=== PATIENT | male | born 1980 | race Caucasian/White ===

== ENCOUNTER 2021-02-09 09:16 | Emergency (ER) | payer OTHER ==
[2021-02-09] MEDS ORDERED: KETOROLAC 15 MG/ML 1 ML VIAL IM STA (09:58)
--- NOTE | 2021-02-09 10:01 | ED ---
General Adult HPI - General Chief complaint: Chest Pain Stated complaint: possible pulled chest muscle Time Seen by Provider: 02/09/21 09:16 Source: patient, RN notes reviewed, old records reviewed Mode of arrival: ambulatory Limitations: no limitations - History of Present Illness Initial comments: This is a 41-year-old male who presents emergency Department stating that he hurt his upper chest on the right when he was at work. 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 Patient states touching the area is very tender and overhead movement of his right arm also increases the pain. Patient states he sits at rest there is no pain. Patient denies any difficulty breathing shortness of breath per patient denies any fever chills or cough. Patient denies any diaphoretic episodes. - Related Data Previous Rx's Medication Instructions Recorded Ketorolac [Toradol] 10 mg PO Q6HR #15 tab 02/09/21 Allergies Allergy/AdvReac Type Severity Reaction Status Date / Time propoxyphene napsylate AdvReac Nausea & Verified 02/09/21 10:55 [From Conrad] Vomiting & Diarrhea Review of Systems ROS Statement: Those systems with pertinent positive or pertinent negative responses have been documented in the HPI. ROS Other: All systems not noted in ROS Statement are negative. Past Medical History Past Medical History: No Reported History History of Any Multi-Drug Resistant Organisms: None Reported Past Surgical History: Hernia Repair Past Psychological History: No Psychological Hx Reported Smoking Status: Current every day smoker Past Alcohol Use History: None Reported Past Drug Use History: None Reported General Exam - General Exam Comments Initial Comments: GENERAL: Patient is well-developed and well-nourished. Patient is nontoxic and well- hydrated and is in no acute distress. ENT: Neck is soft and supple. No significant lymphadenopathy is noted. Oropharynx is clear. Moist mucous membranes. Neck has full range of motion without eliciting any pain. EYES: The sclera were anicteric and conjunctiva were pink and moist. Extraocular movements were intact and pupils were equal round and reactive to light. Eyelids were unremarkable. PULMONARY: Unlabored respirations. Good breath sounds bilaterally. No audible rales rhonchi or wheezing was noted. CARDIOVASCULAR: There is a regular rate and rhythm without any murmurs gallops or rubs. ABDOMEN: Soft and nontender with normal bowel sounds. SKIN: Skin is clear with no lesions or rashes and otherwise unremarkable. NEUROLOGIC: Patient is alert and oriented x3. Cranial nerves II through XII are grossly intact. Motor and sensory are also intact. Normal speech, volume and content. Symmetrical smile. MUSCULOSKELETAL: Normal extremities with adequate strength and full range of motion. Having him move his right arm above his head elicits lateral pectoralis pain. Also palpating the pectoralis muscle causes significant pain PSYCHIATRIC: Normal psychiatric evaluation. Limitations: no limitations Course Vital Signs 02/09/21 09:17 Temperature 99.1 F Pulse Rate 74 Respiratory 18 Rate Blood Pressure 132/83 O2 Sat by Pulse 97 Oximetry Medical Decision Making - Medical Decision Making EKG shows normal sinus rhythm at 70 bpm SC interval 128 QRS is 70 QT interval 372 QTC is 411. Patient's EKG shows no ST segment elevation or depression. Chest x-ray shows no acute abnormality. Patient was given Toradol emergency department and it helped with his pain. Disposition Clinical Impression: Musculoskeletal chest pain Disposition: HOME SELF-CARE Condition: Good Instructions (If sedation given, give patient instructions): Chest Pain (ED) Prescriptions: Ketorolac [Toradol] 10 mg PO Q6HR #15 tab Is patient prescribed a controlled substance at d/c from ED?: No Referrals: Aleisha Rios MD [Primary Care Provider] - 1-2 days Time of Disposition: 11:23
--- NOTE | 2021-02-09 10:48 | XR ---
EXAMINATION TYPE: XR chest 2V DATE OF EXAM: 02/09/2021 COMPARISON: 02/28/2015 HISTORY: Chest pain TECHNIQUE: Frontal and lateral views of the chest are obtained. FINDINGS: There is no focal air space opacity. No evidence for pneumothorax. No pleural effusion. The cardiac silhouette size is within normal limits. The osseous structures are grossly intact. IMPRESSION: 1. No acute cardiopulmonary process.
[2021-02-09 11:32] VITALS: BP 116/77; PULSE 73; RESP 16; TEMP 98.4
== END 2021-02-09 11:38 | disposition home or self-care (01) ==
LOC: EC 09:16
DX: R07.89 Other chest pain (principal); F17.200 Nicotine dependence, unspecified, uncomplicated
CPT/HCPCS: 99285; 96372; 93005; 71046; J1885

== ENCOUNTER 2021-10-27 10:04 | Emergency (ER) | payer BC, OTHER ==
[2021-10-27] MEDS ORDERED: CLINDAMYCIN 150 MG CAP PO STA (13:13)
[2021-10-27] MEDS ORDERED: dexAMETHasone 2 MG TAB PO STA (13:13)
[2021-10-27 13:15] VITALS: BP 125/67; PULSE 63; RESP 12; TEMP 97.5
--- NOTE | 2021-10-27 13:16 | ED ---
General Adult HPI - General Chief complaint: Dental/Oral Stated complaint: Abscess Time Seen by Provider: 10/27/21 13:00 Source: patient, RN notes reviewed, old records reviewed Mode of arrival: ambulatory Limitations: no limitations - History of Present Illness Initial comments: Patient is a 41-year-old male who presents emergency Department with tooth pain. Has a history of dental caries as well as tooth infections. States it is recurring. States he typically receives antibiotics. Has not yet followed up with a dentist. Is seeking antibiotics. Denies any fevers. States he has been having upper front pain for the last few days. Some swelling at the gumline. Denies any sore throat, difficulty swallowing, difficulty breathing. Has no ot her acute complaints at this time. Denies any ALLERGIES antibiotics. Denies any tongue swelling. - Related Data Previous Rx's Medication Instructions Recorded Ketorolac [Toradol] 10 mg PO Q6HR #15 tab 02/09/21 Clindamycin [Cleocin] 450 mg PO Q8H 10 Days #90 cap 10/27/21 Allergies Allergy/AdvReac Type Severity Reaction Status Date / Time propoxyphene napsylate AdvReac Nausea & Verified 10/27/21 11:21 [From Jeanette-Janine] Vomiting & Diarrhea Review of Systems ROS Statement: Those systems with pertinent positive or pertinent negative responses have been documented in the HPI. Review of Systems: CONST: Denies fever EYES: Denies blurry vision ENT: Endorses tooth pain, infection C/V: Denies Chest pain RESP: Denies shortness of breath GI: Denies abdominal pain : Denies dysuria SKIN: Denies rash. MSK: Denies joint pain. NEURO: Denies headache ROS Other: All systems not noted in ROS Statement are negative. Past Medical History Past Medical History: No Reported History History of Any Multi-Drug Resistant Organisms: None Reported Past Surgical History: Hernia Repair Past Psychological History: No Psychological Hx Reported Smoking Status: Current every day smoker Past Alcohol Use History: None Reported Past Drug Use History: None Reported General Exam - General Exam Comments Initial Comments: General: Appears in no acute distress. HEAD: Normal with no signs of head trauma. EYES: EOMI. ENT: Hearing grossly intact. Patient has dental caries. Patient has swelling in the gumline below tooth 27 and 28. No obvious abscess. No floor the mouth swelling. No tongue swelling. Posterior oropharynx within normal limits. No stridor auscultated. RESPIRATORY: Clear breath sounds bilaterally. No wheezes, rales, or rhonchi. C/V: Regular rate and rhythm. S1 and S2 auscultated, no edema, peripheral pulses 2+ and intact throughout ABD: Abd is nondistended EXT: No obvious deformity. SKIN: No rashes or lesions observed on exposed skin. NEURO: Alert and oriented 4. Limitations: no limitations Course Vital Signs 10/27/21 10/27/21 11:18 13:13 Temperature 97.8 F 97.5 F L Pulse Rate 64 63 Respiratory 18 12 Rate Blood Pressure 108/67 125/67 O2 Sat by Pulse 96 97 Oximetry Medical Decision Making - Medical Decision Making Based on the patient's presentation and physical exam, I believe he is having a dental infection. His no sign of worsening infection or Pal angina. I do not believe that he requires laboratory studies or imaging. He will be given antibiotics as well as a dose of steroids prior to discharge. He was in agreement this plan. He'll be given a perception for clindamycin. Recommend a follow-up with a dentist. He was in agreement this plan. I will provide the patient with a prescription for clindamycin 450 mg 3 times a day for 10 days. I instructed the patient to follow up with their PCP in the next 3 days. I explained that the patient should return to the emergency department if they experience any worsening symptoms. Strict return precautions were discussed with the patient. The patient expressed understanding of these instructions. I answered all questions that the patient had. The patient was discharged home in good condition with their prescriptions and follow up information. Disposition Clinical Impression: Dental caries, Tooth infection Disposition: HOME SELF-CARE Condition: Good Instructions (If sedation given, give patient instructions): Toothache (ED) Prescriptions: Clindamycin [Cleocin] 450 mg PO Q8H 10 Days #90 cap Is patient prescribed a controlled substance at d/c from ED?: No Referrals: Aleisha Rios MD [Primary Care Provider] - 1-2 days Time of Disposition: 13:15
== END 2021-10-27 13:33 | disposition home or self-care (01) ==
LOC: EC 10:04
DX: K02.9 Dental caries, unspecified (principal); K04.7 Periapical abscess without sinus; F17.200 Nicotine dependence, unspecified, uncomplicated; Z88.8 Allergy status to other drugs, medicaments and biological substances
CPT/HCPCS: 99282; J8540